=== PATIENT | male | born 1955 | race Caucasian/White ===

== ENCOUNTER 2016-08-21 00:20 | Emergency (ER) | payer MEDICARE, OTHER ==
[2016-08-21 00:20] VITALS: BMI 34.4
--- NOTE | 2016-08-21 00:31 | EDPRACDOC ---
- General Information Chief Complaint: Adult Asthma Stated Complaint: BREATHING DIFFICULTY Time Seen by Provider: 08/21/16 00:26 Home Medications: Home Medications Tiotropium Ulysses [Spiriva] 1 puff INH .DAILY SEE COMMENTS 10/19/12 Albuterol Sulfate [Proventil Hfa] 1 - 2 puff INH Q4H PRN 05/21/14 Alprazolam [Xanax] 0.5 mg PO TID PRN 05/21/14 Budesonide/Formoterol Fumarate [Symbicort 160-4.5 Mcg Inhaler] 2 puff INH BID Albuterol Sulfate [Ventolin] 2.5 mg NEB Q4-6H PRN 06/06/16 Aspirin [Aspirin EC] 81 mg PO .ONCE 06/06/16 Nebulizer [Erapid Nebulizer] 1 each MC .UNKNOWN 06/06/16 Azithromycin [Zithromax] 0 mg PO DAILY #6 tablet 08/21/16 Hydrocodone Bit/Homatropine [Hycodan Syrup] 5 ml PO Q6 PRN #120 syrup 08/21/16 Prednisone [Deltasone, Orasone] 40 mg PO DAILY 5 Days 08/21/16 Allergies/Adverse Reactions: Allergies Allergy/AdvReac Type Severity Reaction Status Date / Time codeine Allergy Nausea/Vomi Verified 06/06/16 17:03 ting - History of Present Illness Onset: 5 DAYS HPI: PT STATES "I THINK I HAVE PNEUMONIA AGAIN", STATES WORSENING SOBR, COUGH PROD OF YELLOW PHLEGM, CHILLS, WHEEZING, TIGHTNESS IN CHEST, PT STATES WEARS 2.5 LPM OXYGEN WHEN HE IS AT HOME, USING NEBS WITHOUT RELIEF. Shortness of Breath: Severe Relevant History: Reports: COPD Cough: Reports: Productive, Yellow Rhinorrhea: Reports: Clear Ear Symptoms: Reports: None SOB Worsens with: Reports: Exertion SOB Improves with: Reports: Nothing Recently treated infections:: Denies: Otitis media, Pneumonia, URI Associated Signs and symptoms: Reports: Cough, Nasal Symptoms. Denies: Earache , Fever, Headache, Sore Throat, Nausea, Vomiting, Diarrhea, Myalgia, Rash, Pain with head movement, AMS ED Past Medical History - History Reviewed Yes Nurses notes reviewed and agree except as marked - Patient Medical History Neurological History: Reports: Migraine Cardiac History: Reports: Congestive Heart Failure (He is unsure this diagnosis) , Heart Attack (2008), Hypercholesterolemia, Syncope Respiratory History: Reports: COPD (and OBSTRUCTIVE SLEEP APNEA (DOESN'T WEAR CPAP)), Bronchitis, Pneumonia (2016), Emphysema (AND CHRONIC RESP FAILURE, INTERMITTENT HOME O2, 2L) Musculoskeletal History: Reports: Arthritis (and chronic back pain. T spine compression fracture.) Psychological History: Reports: Anxiety. Denies: Depression, Substance Use Disorder Systemic History: Reports: Diabetes (By blood sugars here in the hospital he had least is prediabetic to diabeti). Denies: Cancer - Family Medical History Reports: Diabetes (AUNT), Cancer (UNCLES), Stroke (AUNTS/UNCLES), Cardiac Disorders (AUNTS/UNCLES). Denies: Hypertension - Social Medical History Smoking Status: Heavy tobacco smoker (5 or more cigarettes/day or daily pipe/ cigar) (Tobacco: 1 pack of small cigars per day. Started 18 yo.) Social History: Denies: Other Substance Use ETOH: Social Substance Abuse: None EDM Review of Systems - Review of Systems Constitutional: Chills, Fatigue Eyes: negative: Blurred Vision, Double Vision Ears: negative: Drainage Throat: negative: Pain Nose: Congestion. negative: Discharge Respiratory: Cough, Shortness of Breath, Wheezing Cardiovascular: negative: Chest Pain, Palpitations Gastrointestinal: negative: Diarrhea, Nausea, Pain, Vomiting Genitourinary: negative: Dysuria, Frequency Neurological: negative: Dizziness, Headache, Numbness, Weakness Musculoskeletal: No Symptoms Reported Integumentary: No Symptoms Reported - Physical Exam Constitutional: Alert (Awake), No apparent distress Oriented to: Time, Person, Place Last recorded Vital Signs: Oxygen Pulse Oxygen Saturation O2 Device Oxygen Flow Rate Fraction of Inspired Oxygen ( FIO2) - HEENT Head: Normal ( normocephalic) Eye Exam: Normal (PERRL, EOMI, Sclera white) Oropharynx: Normal (Pharynx:Moist without exudate,Gums-no swelling) Tympanic Membrane: Normal ENT EAC: Normal TMJ: Normal Nose: No Symptoms Reported (septum midline) Neck: Normal (FROM, trachea at midline) - Respiratory/Cardiovascular Respiratory: Accessory Muscle Use, Rhonchi, Wheezes Cardiovascular: Normal (RRR without murmur, gallop or rub) - GI Auscultation: Normal (NABS) Palpation: Normal (Soft,No rebound or guarding, non distended) Tenderness: Non tender Carbajal's Sign: Negative - Musculoskeletal Back: Normal (Non-Tender) Extremities: Normal (Normal tone, Pulses 2+ No cyanosis or edema, FROM) - Integumentary Skin: Normal, Warm, Dry Lymphatics: Normal (no adenopathy) - Neurologic Memory Impaired: Normal Motor Function: Normal (Normal tone, Pulses 2+ No cyanosis or edema, FROM) Cranial Nerve: Normal (CN II-X11 intact sensation, strength 5/5) Cerebellar: Normal Mood Description: Normal Perception: Normal ED SOB MDM - Differential Diagnosis Differential Diagnosis: Asthma, Heart Failure, Pnuemonia, Pneumothorax - Re-evaluation Re-evaluation 1 Re-evaluation Time: 01:30 (CONT TO WHEEZE AND FEEL SOBR) - Results Result Diagrams: 08/21/16 00:36 08/21/16 00:36 Results: 08/21/16 02:08 Laboratory Results - last 24 hr 08/21/16 08/21/16 08/21/16 00:36 00:36 00:36 WBC 10.9 H RBC 4.88 Hgb 15.4 Hct 44.8 MCV 92 MCH 31.6 MCHC 34.5 RDW 13.6 Plt Count 241 MPV 7.5 Neut % (Auto) 49.0 Lymph % (Auto) 35.6 [place] % (Auto) 10.2 H Eos % (Auto) 4.1 Baso % (Auto) 1.1 Absolute Neuts (auto) 5.34 Absolute Lymphs (auto) 3.82 PT INR APTT Puncture Site pH pCO2 pO2 HCO3 Total CO2 Base Excess FiO2 % Specimen Drawn By Sodium 141 Potassium 4.4 Chloride 101 Carbon Dioxide 31 Anion Gap 13 BUN 10 Creatinine 0.80 Estimated GFR (MDRD) > 60 Glucose 103 H Calculated Osmolality 270 Lactic Acid 1.1 Calcium 8.9 Total Bilirubin 0.4 AST 44 ALT 41 Alkaline Phosphatase 69 Troponin I < 0.01 [id number] Pept 342 Total Protein 7.2 Albumin 4.0 Lipase 215 08/21/16 08/21/16 00:36 00:40 WBC RBC Hgb Hct MCV MCH MCHC RDW Plt Count MPV Neut % (Auto) Lymph % (Auto) [place] % (Auto) Eos % (Auto) Baso % (Auto) Absolute Neuts (auto) Absolute Lymphs (auto) PT 9.8 INR 1.0 APTT 24.6 Puncture Site Right radial pH 7.350 pCO2 54.0 H pO2 78.0 L HCO3 29.8 H Total CO2 31.5 H Base Excess 2.9 H FiO2 % 2lpm/nc Specimen Drawn By Tracey Sodium Potassium Chloride Carbon Dioxide Anion Gap BUN Creatinine Estimated GFR (MDRD) Glucose Calculated Osmolality Lactic Acid Calcium Total Bilirubin AST ALT Alkaline Phosphatase Troponin I [id number] Pept Total Protein Albumin Lipase - EKG EKG #1 EKG Time: 00:31 -: Yes EKG interpreted by me Rate: bpm: 101 [place]: Normal Rhythm: ST Block: None Hypertrophy: None ST: Normal Comparison: 06/06/16 (NO CHANGE) - Diagnostic Imaging CXR Image interpreted by: Radiologist Diagnostic Imaging Comments: CHEST 2 VIEW COMPARISON: CT dated 06/06/2016 FINDINGS: Two views of the chest do not demonstrate a focal consolidation. An area of mild increased density noted in the right mid to lower lung field which may be related to atelectatic changes or vascular crowding. Developing pneumonia is not excluded. Clinical correlation is recommended. There is no pleural effusion or pneumothorax. Top-normal cardiac size. No acute osseous pathology. IMPRESSION: No focal consolidation. Right mid to lower lung field mild atelectatic changes. Developing pneumonia is less likely but not excluded. Clinical correlation and follow-up recommended. Decision Time to Discharge: 02:39 - Departure Disposition: Home Condition: Stable Final Diagnosis: COPD with acute exacerbation, Tobacco abuse Instructions: COPD (Chronic Obstructive Pulmonary Disease) (ED) Education/Counseling Given To: Patient Education/Counseling Given Regarding: Diagnosis, Treatment, Prognosis, Follow Up Referrals: Ac Paz MD [Ambulatory] - One Week Prescriptions: New Azithromycin [Zithromax] 0 mg PO DAILY #6 tablet Hydrocodone Bit/Homatropine [Hycodan Syrup] 5 ml PO Q6 PRN #120 syrup PRN Reason: Cough Prednisone [Deltasone, Orasone] 40 mg PO DAILY 5 Days Continue Tiotropium Ulysses [Spiriva] 1 puff INH .DAILY SEE COMMENTS Alprazolam [Xanax] 0.5 mg PO TID PRN PRN Reason: Anxiety Albuterol Sulfate [Proventil Hfa] 1 - 2 puff INH Q4H PRN PRN Reason: Shortness Of Breath Budesonide/Formoterol Fumarate [Symbicort 160-4.5 Mcg Inhaler] 2 puff INH BID Nebulizer [Erapid Nebulizer] 1 each MC .UNKNOWN Albuterol Sulfate [Ventolin] 2.5 mg NEB Q4-6H PRN PRN Reason: Shortness Of Breath Aspirin [Aspirin EC] 81 mg PO .ONCE Additional Instructions: REST, DRINK PLENTY OF FLUIDS, CONTINUE YOUR USUAL MEDICATIONS BEFORE, PLEASE STOP SMOKING, RETURN TO THE ED FOR ANY WORSENING SYMPTOMS OR CONCERNS.
[2016-08-21] MEDS ORDERED: METHYLPREDNISOLONE 125 MG/2 ML VIAL IV ONE (00:32)
[2016-08-21] MEDS ORDERED: Albuterol/Ipratropium Neb 3 ML NEB NEB ONE ×2 (00:32→01:41)
[2016-08-21 00:38] VITALS: TEMP 98.9
[2016-08-21 00:44] LABS: AUTOMATED BASOPHIL 1.1 % (0-2); AUTOMATED EOSINOPHIL 4.1 % (0-5); AUTOMATED LYMPH 35.6 % (17-44); AUTOMATED MONOCYTE 10.2 % (3-10); MPV 7.5 fL (7.4-10.4)
[2016-08-21 00:51] LABS: ALLEN'S TEST PASS; BEb 2.9 (+/- 2); TCO2 31.5 MMOL/L (23-27)
[2016-08-21 00:52] LABS: ABG Draw Site Right Radial
[2016-08-21 01:00] LABS: BLOOD UREA NITROGEN 10 MG/DL (9-20); CALCIUM 8.9 MG/DL (8.4-10.2); CALCULATED OSMOLALITY 270 MOs/Kg (270-290); CHLORIDE 101 mEq/L (98-107); GLUCOSE 103 mg/dL (70-99); SODIUM LEVEL 141 mEq/L (137-146); TOTAL PROTEIN 7.2 G/DL (6.3-8.2)
[2016-08-21 01:11] LABS: PARTIAL THROMB. TIME 24.6 SEC (22-35)
--- NOTE | 2016-08-21 02:06 | DIRPT ---
CLINICAL DATA: 61-year-old male with shortness of breath EXAM: CHEST 2 VIEW COMPARISON: CT dated 06/06/2016 FINDINGS: Two views of the chest do not demonstrate a focal consolidation. An area of mild increased density noted in the right mid to lower lung field which may be related to atelectatic changes or vascular crowding. Developing pneumonia is not excluded. Clinical correlation is recommended. There is no pleural effusion or pneumothorax. Top-normal cardiac size. No acute osseous pathology. IMPRESSION: No focal consolidation. Right mid to lower lung field mild atelectatic changes. Developing pneumonia is less likely but not excluded. Clinical correlation and follow-up recommended. Electronically Signed By: Guillaume Rodriguez M.D. On: 08/21/2016 02:03
[2016-08-21] MEDS ORDERED: AZITHROMYCIN 500 MG in D5W 250 ML IV ONE (02:09)
[2016-08-21 03:48] VITALS: BP 131/76; PULSE 89
== END 2016-08-21 03:47 | disposition home or self-care (01) ==
LOC: ED 00:20
DX: J44.1 Chronic obstructive pulmonary disease with (acute) exacerbation (principal); F17.210 Nicotine dependence, cigarettes, uncomplicated
CPT/HCPCS: 36415; 36600; 71020; 80053; 82803; 83605; 83690; 83880; 84484; 85025; 85610; 85730; 87040; 93005; 94640; 96365; 96375; 99284; J0456; J2930; J7070; J7620